=== PATIENT | male | born 1985 | race Caucasian/White ===

== ENCOUNTER 2024-06-09 08:52 | Outpatient (CLI) | payer OTHER, SELFPAY ==
--- NOTE | 2024-06-09 09:15 | CRLHL7_ITS ---
For Patients: As a result of the Century Cures Act, medical imaging exams and procedure reports are released immediately into your electronic medical record. You may view this report before your referring provider. If you have questions, please contact your health care provider. Technique: Single contrast esophagram with thin barium. Fluoroscopy time 1 minute 56 seconds. Indication: Dysphagia Comparison: None. Findings: Esophagus: Normal morphology and motility. No stricture or mass. Gastroesophageal reflux: Spontaneous reflux present. No hernia. Impression: Spontaneous reflux noted. No inflammation. Dictated by Myke Zamarripa MD @ 06/11/2024 12:13:26 PM (Electronically Signed)
--- NOTE | 2024-06-09 11:00 | CRLHL7_ITS ---
For Patients: As a result of the Century Cures Act, medical imaging exams and procedure reports are released immediately into your electronic medical record. You may view this report before your referring provider. If you have questions, please contact your health care provider. INDICATION: Dysphagia. Globus sensation. Acid reflux. TECHNIQUE: CT images acquired through the neck soft tissues during infusion of 106 cc Isovue-370 contrast. Multiplanar reconstructions. FINDINGS: Convex right posterior nasal septal curve and small septal spur. Thickening of the left nasal mucosa. The nasopharynx and oropharynx are unremarkable parapharyngeal fat is not distorted or displaced. Parotid and submandibular glands unremarkable. Hypopharynx epiglottis larynx and subglottic trachea are unremarkable. Thyroid gland unremarkable. No worrisome soft tissue mass within the neck soft tissues. There are scattered normal size lymph nodes in the bilateral jugular and spinal accessory lymph node chains and in the submental space. No pathologically enlarged or worrisome lymph nodes seen. Osseous structures of the cervical spine unremarkable. Impression : No worrisome soft tissue mass lymphadenopathy nor CT correlate for the patient`s symptoms of difficulty swallowing. Please note that all CT scans at this facility use dose modulation, iterative reconstruction, and/or weight-based dosing when appropriate to reduce radiation dose to as low as reasonably achievable. Dictated by Yasmany Jang MD @ 06/10/2024 1:31:42 PM (Electronically Signed)
== END 2024-06-09 08:53 | disposition home or self-care (01) ==
PROVIDERS: PCP Physician Assistant Medical; Visit Provider Otolaryngology
DX: R13.10 Dysphagia, unspecified (principal); K21.9 Gastro-esophageal reflux disease without esophagitis
CPT/HCPCS: 70491; 74220; Q9967

== ENCOUNTER 2025-04-19 08:08 | Outpatient (CLI) | payer OTHER, SELFPAY | END 2025-04-19 08:09 | disposition home or self-care (01) | LOC: NFLDREF 04-20 03:12 | PROVIDERS: PCP Physician Assistant Medical; Referring Provider Physician Assistant Medical; Visit Provider Physician Assistant Medical | DX: Z00.00 Encounter for general adult medical examination without abnormal findings (principal); D3A.8 Other benign neuroendocrine tumors; R73.9 Hyperglycemia, unspecified; Z13.6 Encounter for screening for cardiovascular disorders | CPT/HCPCS: 80053; 80061; 84439; 84443 ==